=== PATIENT | male | born 1955 | race Caucasian/White ===

== ENCOUNTER 2021-10-02 13:00 | Emergency (ER) | payer MEDICARE ==
[2021-10-02 13:45] VITALS: TEMP 97.7
--- NOTE | 2021-10-02 14:47 | ED ---
General Adult HPI - General Chief complaint: ENT Stated complaint: ENT, trouble breathing Time Seen by Provider: 10/02/21 14:26 Source: patient Mode of arrival: ambulatory Limitations: no limitations - History of Present Illness Initial comments: Dictation was produced using [email or web address] dictation software. please excuse any grammatical, word or spelling errors. Chief Complaint: 65-year-old male presents emergency department for CT imaging History of Present Illness: 65-year-old who has past medical history of laryngeal polyps, sinusitis and sleep apnea. Patient reports that her last month he has been developing symptoms of intractable belching, swallowing air. He was seen by his primary care doctor and was prescribed ALLERGY medications. States his medications did not help. He ended be referred to ENT physician, Dr. Boyd. Dr. Boyd ordered patient to computed tomography scan and antibiotics. He was not scheduled for the computed tomography scan until October 10. States that he was instructed not to take steroidal medications until after the computed tomography scan. He states he did not want to wait in the second to the ER to expedite a CT imaging so he can start taking steroids. Patient besides having some mild dysphasia and intractable belching does not have any other symptoms. The ROS documented in this emergency department record has been reviewed and confirmed by me. Those systems with pertinent positive or negative responses have been documented in the HPI. All other systems are other negative and/or noncontributory. PHYSICAL EXAM: General Impression: Alert and oriented x3, not in acute distress HEENT: Normocephalic atraumatic, extra-ocular movements intact, pupils equal and reactive to light bilaterally, mucous membranes moist. Cardiovascular: Heart regular rate and rhythm Chest: Able to complete full sentences, no retractions, no tachypnea Abdomen: abdomen soft, non-tender, non-distended, no organomegaly Musculoskeletal: Pulses present and equal in all extremities, no peripheral edema Motor: no focal deficits noted Neurological: CN II-XII grossly intact, no focal motor or sensory deficits noted Skin: Intact with no visualized rashes Psych: Normal affect and mood ED course: 65-year-old well-appearing male presents to the emergency department. Patient requesting CT imaging. He is scheduled for CT imaging on October 20. He does not want to wait until then so he can start taking prednisone that he is prescribed by ENT physician. Vital signs upon arrival are within acceptable limits. Patient not showing any signs of distress. Metabolic panel is unremarkable. CT of the soft tissue neck with contrast shows mild cervical lymphadenopathy. No evidence of pharyngeal mass. There is also mild ethmoid and frontal sinusitis noted. Patient observed in the emergency department for 3 hours and 20 minutes. He is reevaluated at bedside at 4:30 PM found to be stable medical condition. Is not showing signs of distress. Patient's belching has improved. Patient discharged and advised to follow-up with ENT physician. - Related Data Allergies Allergy/AdvReac Type Severity Reaction Status Date / Time No Known Allergies Allergy Verified 10/02/21 13:45 Review of Systems ROS Statement: Those systems with pertinent positive or pertinent negative responses have been documented in the HPI. ROS Other: All systems not noted in ROS Statement are negative. Past Medical History Past Medical History: GERD/Reflux Additional Past Medical History / Comment(s): laryngeal polyps, sinusitis, sleep apnea History of Any Multi-Drug Resistant Organisms: None Reported Past Psychological History: No Psychological Hx Reported Smoking Status: Former smoker Past Alcohol Use History: None Reported Past Drug Use History: None Reported General Exam Limitations: no limitations Course Vital Signs 10/02/21 13:39 Temperature 97.7 F Pulse Rate 105 H Respiratory 20 Rate Blood Pressure 151/85 O2 Sat by Pulse 96 Oximetry Medical Decision Making - Lab Data Result diagrams: 10/02/21 14:52 Lab Results 10/02/21 Range/Units 14:52 Sodium 139 (137-145) mmol/L Potassium 4.1 (3.5-5.1) mmol/L Chloride 106 (98-107) mmol/L Carbon Dioxide 24 (22-30) mmol/L Anion Gap 9 mmol/L BUN 16 (9-20) mg/dL Creatinine 1.09 (0.66-1.25) mg/dL Est GFR (CKD-EPI)AfAm 81 (>60 ml/min/1.73 sqM) Est GFR (CKD-EPI)NonAf 70 (>60 ml/min/1.73 sqM) Glucose 105 H (74-99) mg/dL Calcium 9.3 (8.4-10.2) mg/dL Disposition Clinical Impression: Dysphagia Disposition: HOME SELF-CARE Condition: Good Instructions (If sedation given, give patient instructions): Dysphagia (ED) Is patient prescribed a controlled substance at d/c from ED?: No Referrals: Trent Sykes [Primary Care Provider] - 1-2 days Braulio Del Castillo DO [Doctor of Osteopathic Medicine] - 1-2 days
[2021-10-02 15:27] LABS: Calcium 9.3 mg/dL (8.4-10.2)
[2021-10-02 15:28] LABS: Potassium 4.1 mmol/L (3.5-5.1)
--- NOTE | 2021-10-02 16:18 | CT ---
EXAMINATION TYPE: CT soft tissue neck w con DATE OF EXAM: 10/02/2021 COMPARISON: None HISTORY: dyspena, neck mass CT DLP: 305.1 mGycm Automated exposure control for dose reduction was used. CONTRAST: Performed with IV Contrast, patient injected with 100 mL of Isovue 300. Images obtained from the top of the orbits to the aortic arch with IV contrast. There is normal branching pattern of the great vessels of the aortic arch. No mediastinal adenopathy. Thyroid gland is symmetric. There is contrast opacification of the carotid arteries and jugular vein s. There is contrast opacification of the vertebral arteries. Submandibular salivary glands are symme tric. Parotid glands are symmetric. There are bilateral anterior triangle cervical lymph nodes measur ing up to 1.7 cm. Epiglottis is normal. Trachea appears normal. The tongue appears normal. The tonsils and adenoids jaden ear intact. There is some mucosal thickening in the frontal and ethmoid sinuses. No evidence of orbit al mass. Mandible is intact. Maxilla is intact. Prevertebral soft tissues appear normal. No evidence of pharyn geal mass. IMPRESSION: There is nonspecific mild cervical lymphadenopathy. No evidence of a pharyngeal mass. Mild ethmoid an d frontal sinusitis noted.
[2021-10-02 16:38] VITALS: BP 155/78; PULSE 99; RESP 16
== END 2021-10-02 16:37 | disposition home or self-care (01) ==
LOC: EC 13:00
DX: R47.02 Dysphasia (principal); Z87.891 Personal history of nicotine dependence
CPT/HCPCS: 36415; 80048; 70491; 99284; Q9967

== ENCOUNTER 2021-10-13 13:31 | Inpatient (IN) | payer MEDICARE, OTHER ==
[2021-10-13] MEDS ORDERED: SODIUM CHLORIDE 0.9% 1,000 ML IV ONE (15:19)
[2021-10-13] MEDS ORDERED: FAMOTIDINE 20 MG/2 ML VIAL IV STA (15:20)
[2021-10-13] MEDS ORDERED: FLUCONAZOLE IN NACL,ISO-OSM 400 MG in SALINE 1 200ML.BAG IVPB STA (16:10)
--- NOTE | 2021-10-13 16:53 | ED ---
ENT HPI - General Chief complaint: ENT Stated complaint: Dysphagia Time Seen by Provider: 10/13/21 15:03 Source: patient, RN notes reviewed, old records reviewed Mode of arrival: ambulatory Limitations: no limitations - History of Present Illness Initial comments: This is a 65-year-old male who presents to the emergency department for dysphasia. Over a month ago, he began to develop intractable belching and dysphasia. He is up to the point where he can't talk without getting short of breath and he is unable to swallow without taking in large volumes of air and belching. Upon initial examination, patient is having continuous belching causing difficulty with speaking. He had similar symptoms 10-11 years ago when he was diagnosed with oral thrush and fungal sinusitis. He was initially evaluated at this emergency department on 10/02. He had a computed tomography scan of the soft tissue of the neck revealing mild nonspecific cervical lymphade nopathy and mild frontal and ethmoid sinusitis. He was discharged and followed up with Dr. Del Castillo on 10/05. He was instructed to go to [facility] emergency room for a computed tomography scan of the chest and sinuses. This again revealed no abnormalities. He was then transferred to [facility] where he was admitted from 10/08-10/09 and had an endoscopy. He was diagnosed with LA grade B reflux esophagitis. He did not find endoscopic evidence of bleeding, hiatal hernia, stenosis, or stricture. The stomach and partially visualized duodenum also did not reveal any irregularities. No specimens were collected during the EGD. When he was discharged on 10/09, he was again told to follow up with ENT. He notes that he has lost about 20 pounds in the last month. Also reports a lost of taste and smell. Additionally, before the dysphasia began, he had drainage and swelling in the sinuses, and feels like it worked its way down to the throat. He does feel pressure and a swelling sensation in the throat. He has not been started on any steroids, however there is concerned that if this were to be a fungal infection, the steroids would further exacerbate this. He was discharged with instruction to take Augmentin, GI cocktail, and fluconazole. However, he was only able to take 2 fluconazole pills because of the dysphagia Any time he eats or drinks anything, he feels like it gets stuck or stops in his throat and he spits it back up. Belching is also preventing him from sw allowing. Despite all of these symptoms, he is not experiencing any pain. He was told that if he continues to be unable to eat or drink anything, he may need a feeding tube placed. Denies any fevers, chills, sore throat, cough, dyspnea, chest pain, palpitations, abdominal pain, nausea, vomiting, diarrhea, back pain, or headaches. MD complaint: difficulty swallowing Onset/Timin -: month(s) Consistency: constant - Related Data Home Medications Medication Instructions Recorded Confirmed Fluconazole [Diflucan] 200 mg PO DAILY 10/13/21 10/13/21 Kools Solution 10 ml PO Q4H PRN 10/13/21 Montelukast Sodium [Singulair] 10 mg PO DAILY 10/13/21 10/13/21 Omeprazole [PriLOSEC] 40 mg PO DAILY 10/13/21 10/13/21 predniSONE [Deltasone] 20 mg PO Q48H 10/13/21 10/13/21 Allergies Allergy/AdvReac Type Severity Reaction Status Date / Time No Known Allergies Allergy Verified 10/13/21 17:02 Review of Systems ROS Statement: Those systems with pertinent positive or pertinent negative responses have been documented in the HPI. ROS Other: All systems not noted in ROS Statement are negative. Past Medical History Past Medical History: GERD/Reflux Additional Past Medical History / Comment(s): laryngeal polyps, sinusitis, sleep apnea History of Any Multi-Drug Resistant Organisms: None Reported Past Psychological History: No Psychological Hx Reported Smoking Status: Former smoker Past Alcohol Use History: None Reported Past Drug Use History: None Reported General Exam Limitations: no limitations General appearance: alert Head exam: Present: atraumatic, normocephalic, normal inspection ENT exam: Present: other (White roach on the tongue which may be consistent with oral candidiasis) Neck exam: Present: normal inspection, full ROM. Absent: tenderness, meningismus, lymphadenopathy Respiratory exam: Present: normal lung sounds bilaterally. Absent: respiratory distress, wheezes, rales, rhonchi, stridor Cardiovascular Exam: Present: regular rate, normal rhythm, normal heart sounds. Absent: systolic murmur, diastolic murmur, rubs, gallop, clicks Neurological exam: Present: alert, oriented X3, CN II-XII intact Psychiatric exam: Present: normal affect, normal mood Skin exam: Present: warm, dry, intact, normal color. Absent: rash Course Vital Signs 10/13/21 10/13/21 10/13/21 13:39 18:22 19:36 Temperature 97.4 F L Pulse Rate 110 H 82 93 Respiratory 20 18 16 Rate Blood Pressure 149/92 155/101 148/91 O2 Sat by Pulse 97 99 98 Oximetry 10/13/21 21:32 Temperature 98.0 F Pulse Rate 68 Respiratory 18 Rate Blood Pressure 140/82 O2 Sat by Pulse 98 Oximetry Medical Decision Making - Medical Decision Making This is a 65-year-old male who presents to the emergency department for intractable dysphagia and belching. Records from his previous visit at [facility], [facility], and [facility] were reviewed. Computed tomography scan of the neck and chest were unremarkable. Computed tomography scan of the sinuses reveals chronic sinusitis. EGD at [place] revealed esophagitis, however no biopsies were obtained. He has never had a barium swallow study or esophageal manometry. Patient is unable to talk without continuous belching. Given that the patient has been unable to eat or drink and is losing a significant amount of weight, patient will be admitted for further evaluation with gastroenterology consult. Swallow study ordered for the morning. When patient was discharged from [facility], he was advised to begin Augmentin and Flagyl. Because he has not been able to take these orally due to his symptoms, IV Flagyl and Unasyn were started. This case was discussed in detail with the attending ED physician. Presentation, findings, and treatment plan discussed in detail as well. - Lab Data Result diagrams: 10/13/21 16:36 10/13/21 16:36 Lab Results 10/13/21 10/13/21 10/13/21 Range/Units 16:36 16:36 16:36 WBC 10.5 (3.8-10.6) k/uL RBC 5.66 (4.30-5.90) m/uL Hgb 17.1 (13.0-17.5) gm/dL Hct 50.6 (39.0-53.0) % MCV 89.6 (80.0-100.0) fL MCH 30.2 (25.0-35.0) pg MCHC 33.7 (31.0-37.0) g/dL RDW 12.7 (11.5-15.5) % Plt Count 188 (150-450) k/uL MPV 8.8 Neutrophils % 63 % Lymphocytes % 28 % Monocytes % 6 % Eosinophils % 0 % Basophils % 1 % Neutrophils # 6.6 (1.3-7.7) k/uL Lymphocytes # 2.9 (1.0-4.8) k/uL Monocytes # 0.6 (0-1.0) k/uL Eosinophils # 0.0 (0-0.7) k/uL Basophils # 0.1 (0-0.2) k/uL ESR 8 (0-15) mm/hr Sodium 140 (137-145) mmol/L Potassium 3.9 (3.5-5.1) mmol/L Chloride 101 (98-107) mmol/L Carbon Dioxide 22 (22-30) mmol/L Anion Gap 17 mmol/L BUN 21 H (9-20) mg/dL Creatinine 1.20 (0.66-1.25) mg/dL Est GFR (CKD-EPI)AfAm 73 (>60 ml/min/1.73 sqM) Est GFR (CKD-EPI)NonAf 63 (>60 ml/min/1.73 sqM) Glucose 97 (74-99) mg/dL Calcium 10.1 (8.4-10.2) mg/dL Total Bilirubin 1.1 (0.2-1.3) mg/dL AST 42 (17-59) U/L ALT 59 H (4-49) U/L Alkaline Phosphatase 100 (38-126) U/L C-Reactive Protein <0.5 (<1.0) mg/dL Total Protein 9.1 H (6.3-8.2) g/dL Albumin 5.3 H (3.5-5.0) g/dL Urine Color Yellow Urine Appearance Clear (Clear) Urine pH 5.5 (5.0-8.0) Ur Specific [place] 1.037 H (1.001-1.035) Urine Protein 1+ H (Negative) Urine Glucose (UA) Negative (Negative) Urine Ketones 4+ H (Negative) Urine Blood Negative (Negative) Urine Nitrite Negative (Negative) Urine Bilirubin 1+ H (Negative) Urine Urobilinogen 2.0 (<2.0) mg/dL Ur Leukocyte Esterase Negative (Negative) Urine RBC 1 (0-5) /hpf Urine WBC 1 (0-5) /hpf Ur Squamous Epith Cells <1 (0-4) /hpf Urine Mucus Many H (None) /hpf Disposition Clinical Impression: Refractory sinusitis, Dysphagia, Malnutrition, Weight loss, unintentional Disposition: ADMITTED IP TO THIS HOSP
[2021-10-13 17:04] LABS: ALT 59 U/L (4-49); AST 42 U/L (17-59); African American GFR (CKD) 73 (>60 ml/min/1.73 sqM); Albumin 5.3 g/dL (3.5-5.0); Alkaline Phosphatase 100 U/L (38-126); Anion Gap 17 mmol/L; Blood Urea Nitrogen 21 mg/dL (9-20); C Reactive Protein <0.5 mg/dL (<1.0); Calcium 10.1 mg/dL (8.4-10.2); Carbon Dioxide 22 mmol/L (22-30); Chloride 101 mmol/L (98-107); Glucose 97 mg/dL (74-99); Non-African American GFR(CKD) 63 (>60 ml/min/1.73 sqM); Potassium 3.9 mmol/L (3.5-5.1); Sodium 140 mmol/L (137-145); Total Bilirubin 1.1 mg/dL (0.2-1.3); Total Protein 9.1 g/dL (6.3-8.2)
[2021-10-13 17:17] LABS: Basophils # (A) 0.1 k/uL (0-0.2); Basophils % (A) 1 %; Eosinophils % (A) 0 %; HCT 50.6 % (39.0-53.0); HGB 17.1 gm/dL (13.0-17.5); Lymphocytes # (A) 2.9 k/uL (1.0-4.8); Lymphocytes % (A) 28 %; MCH 30.2 pg (25.0-35.0); MCHC 33.7 g/dL (31.0-37.0); MCV 89.6 fL (80.0-100.0); Mean Platelet Volume 8.8; Monocytes # (A) 0.6 k/uL (0-1.0); Monocytes % (A) 6 %; Neutrophils # (A) 6.6 k/uL (1.3-7.7); Neutrophils % (A) 63 %; Platelet Count 188 k/uL (150-450); RBC 5.66 m/uL (4.30-5.90); RDW 12.7 % (11.5-15.5); WBC 10.5 k/uL (3.8-10.6)
[2021-10-13 17:53] LABS: Appearance,Urine Clear (Clear); Bilirubin,Urine 1+ (Negative); Blood,Urine Negative (Negative); Color,Urine Yellow; Glucose,Urine (UA) Negative (Negative); Ketones,Urine 4+ (Negative); Leukocyte Esterase,Urine Negative (Negative); Mucus,Urine Many /hpf; Nitrite,Urine Negative (Negative); PH, Urine 5.5 (5.0-8.0); Protein,Urine 1+ (Negative); RBC,Urine 1 /hpf (0-5); Specific Gravity,Urine 1.037 (1.001-1.035); Squamous Epithelial Cell,Urine <1 /hpf (0-4); WBC,Urine 1 /hpf (0-5)
[2021-10-13] MEDS ORDERED: AMPICILLIN-SULBACTAM 3 GM in SODIUM CHLORIDE 0.9% 100 ML IVPB ONE (18:30)
[2021-10-13 18:34] LABS: Erythrocyte Sedimentation Rate 8 mm/hr (0-15)
[2021-10-13] MEDS ORDERED: HYDROmorphone 1 MG/ML 1 ML SYRINGE IVP PRN (19:16)
[2021-10-13] MEDS ORDERED: HYDROmorphone 0.5 MG/0.5 ML SYRINGE IVP PRN (19:16)
[2021-10-13] MEDS ORDERED: NALOXONE 0.4 MG/ML 1 ML VIAL IV PRN (19:16)
[2021-10-13] MEDS: SODIUM CHLORIDE 0.9% 1,000 ML IV SCH (19:37)
[2021-10-13] MEDS ORDERED: KETOROLAC 15 MG/ML 1 ML VIAL IVP PRN (19:50)
[2021-10-13] MEDS ORDERED: KETOROLAC 15 MG/ML 1 ML VIAL IVP SCH (20:00)
[2021-10-13] MEDS: PANTOPRAZOLE 40 MG/10 ML VIAL IV SCH (22:08)
--- NOTE | 2021-10-13 22:37 | P.HPIM ---
History of Present Illness H&P Date: 10/13/21 The patient is a 65-year-old male who presented to the emergency room with complaints of dysphagia and excessive eructation. Patient reports that roughly 10 years ago, he was diagnosed with fungal sinusitis and oral thrush and also had similar symptoms which resolved with antifungals. His current symptoms however started roughly a month ago when he initially developed discomfort and drainage of the sinuses which as per the patient worked its way down to the throat where he then developed gradually worsening belching, now to the point where he is unable to eat and speak in full sentences. He notes that there is an involuntary ingestion of air with most breaths, causing him to constantly be lch. He reports having lost 20 pounds of weight in the last one month due to minimal oral intake.Patient was initially seen in the emergency room on 10/[address] neck with contrast revealed mild ethmoid and frontal sinusitis as well as mild cervical lymphadenopathy nonspecific. He was subsequently discharged and followed up with his ENT doctor Dr. Boyd on 10/05 who advised him to go to the emergency room, at which time he went to [facility] as per the patient a CT chest was performed and was unremarkable. From there, he was transferred to [facility] where he had an inpatient stay and underwent an upper endoscopy revealing grade B reflux esophagitis with no other abnormalities. As per the documentation, no specimens were collected, the patient was discharged on 10/09 with Augmentin and fluconazole and advised to follow-up with his ENT. The patient reports not having undergone a swallowing evaluation such as a barium study. Patient reports that he has not taken those medications as he is unable to tolerate any liquids or solids. The patient has discussed with Dr. Boyd about the possibility of a feeding tube if the symptoms persist due to the excessive weight loss. The patient denied odynophagia, nausea, vomiting, diarrhea, abdominal pain. Also denied headaches, visual disturbances, fever, chills, chest pain, shortness of breath. Laboratory evaluation in the emergency room was unremarkable. Review of systems: Pertinent positives and negatives as discussed in HPI, a complete review of systems was performed and all other systems are negative. Physical examination: General: non toxic, no distress, appears at stated age, constantly belching, normal weight Derm: no unusual rashes/lesions, warm Head: atraumatic, normocephalic, symmetric Eyes: EOMI, no lid lag, anicteric sclera, pupils equal round reactive to light ENT: Nose and ears atraumatic Neck: No cervical lymphadenopathy, trachea midline, supple Mouth: no lip lesion, mucus membranes moist Cardiovascular: S1S2 reg, no murmur, positive dorsalis pedis pulse bilateral, no edema Lungs: CTA bilateral, no rhonchi, no rales, no accessory muscle use Abdominal: soft, nontender to palpation, no guarding Ext: muscle strength 5 out of 5 in all 4 extremities grossly, no gross muscle atrophy, no contractures, Neuro: CN II-XI grossly intact, no gross focal neuro deficits Psych: Alert, oriented, appropriate affect Assessment/plan Dysphagia with excessive eructation -Consult Dr. Boyd -Continue fluconazole -Consult [facility] for swallowing evaluation including videofluoroscopic barium -Continue Protonix DVT prophylaxis -Heparin subcu The patient is admitted with an anticipated greater than 2 midnight stay for evaluation of dysphagia CODE STATUS: Full Code Discussed with: Patient Anticipated discharge date: 10/[address]: Home Past Medical History Past Medical History: GERD/Reflux Additional Past Medical History / Comment(s): laryngeal polyps, sinusitis, sleep apnea History of Any Multi-Drug Resistant Organisms: None Reported Past Psychological History: No Psychological Hx Reported Smoking Status: Former smoker Past Alcohol Use History: None Reported Past Drug Use History: None Reported - Past Family History Mother Family Medical History: Hypertension Medications and Allergies Home Medications Medication Instructions Recorded Confirmed Type Fluconazole [Diflucan] 200 mg PO DAILY 10/13/21 10/13/21 History Kools Solution 10 ml PO Q4H PRN 10/13/21 History Montelukast Sodium [Singulair] 10 mg PO DAILY 10/13/21 10/13/21 History Omeprazole [PriLOSEC] 40 mg PO DAILY 10/13/21 10/13/21 History predniSONE [Deltasone] 20 mg PO Q48H 10/13/21 10/13/21 History Allergies Allergy/AdvReac Type Severity Reaction Status Date / Time No Known Allergies Allergy Verified 10/13/21 17:02 Physical Exam Vitals: Vital Signs Temp Pulse Resp BP Pulse Ox 10/13/21 19:36 93 16 148/91 98 10/13/21 18:22 82 18 155/101 99 10/13/21 13:39 97.4 F L 110 H 20 149/92 97 Intake and Output 10/13/21 10/13/21 10/13/21 06:59 14:59 22:59 Other: Weight 88.451 kg Results CBC & Chem 7: 10/13/21 16:36 10/13/21 16:36 Labs: Abnormal Lab Results - Last 24 Hours (Table) 10/13/21 10/13/21 Range/Units 16:36 16:36 BUN 21 H (9-20) mg/dL ALT 59 H (4-49) U/L Total Protein 9.1 H (6.3-8.2) g/dL Albumin 5.3 H (3.5-5.0) g/dL Ur Specific [place] 1.037 H (1.001-1.035) Urine Protein 1+ H (Negative) Urine Ketones 4+ H (Negative) Urine Bilirubin 1+ H (Negative) Urine Mucus Many H (None) /hpf
[2021-10-14] MEDS ORDERED: AMPICILLIN-SULBACTAM 3 GM in SODIUM CHLORIDE 0.9% 100 ML IVPB SCH ×2
[2021-10-14] MEDS: HEPARIN SODIUM,PORCINE/PF 5,000 UNIT/0.5 ML SYRINGE SQ SCH ×4 (00:10→23:21)
[2021-10-14] MEDS: FLUCONAZOLE IN NACL,ISO-OSM 200 MG in SALINE 1 100ML.BAG IVPB SCH (07:43)
[2021-10-14] MEDS: PANTOPRAZOLE 40 MG/10 ML VIAL IV SCH (07:43)
[2021-10-14] MEDS: SODIUM CHLORIDE 0.9% 1,000 ML IV SCH ×2 (07:44→23:21)
--- NOTE | 2021-10-14 09:20 | FL ---
EXAMINATION TYPE: FL barium swallow DATE OF EXAM: 10/14/2021 CLINICAL INDICATION: 65-year-old male intractable dysphasia, belching, shortness of breath, weight lo ss. COMPARISON: Correlation outside CT chest 10/05/2021 Total Fluoroscopy Time: 2 minutes 34 seconds 56 images obtained. FINDINGS: The patient had poor tolerance of the effervescent granules. Swallowing mechanism is normal. There is preferential rightward flow on the right aryepiglottic fold, likely normal variation. Mild palatine tonsillar hypertrophy noted. There is anterior endplate spondylosis at C4-C5 causing focal compression onto the posterior wall of the cervical esophagus without obstruction. The thoracic portion has a normal course and caliber. A mild age-related tertiary peristaltic waves a re noted. The mucosa is normal and no persistent filling defect is encountered. There is a tiny sliding hiatal hernia. Gastroesophageal reflux could not be elicited with Valsalva or positional maneuvers. IMPRESSION: 1. Braulio oral thrush incidentally noted at the start of the exam. No fluoroscopic evidence for Candid a esophagitis of the thoracic esophagus. No additional mucosal abnormalities to suggest other esophag itis. 2. Anterior endplate spondylosis C4-C5 focally impressing on the posterior wall of the cervical esoph chana without obstruction. 3. [place] tonsillar hypertrophy incidentally noted. 4. Small sliding hiatal hernia. Unable to elicit any gastroesophageal reflux during the course of the exam.
--- NOTE | 2021-10-14 13:30 | P.CONS ---
History of Present Illness - Reason for Consult Consult date: 10/14/21 Intractable dysphagia Requesting physician: Arely Barrera - Chief Complaint Difficulty swallowing, facial swelling - History of Present Illness This a pleasant 65-year-old male who presented to the emergency department yesterday with complaints offacial swelling, sinus pressure, and difficulty with swallowing due to the swelling. He also has complaints of oral thrush. He also states he feels as though he is getting short of breath and difficult to catch his breath or swallow due to chronic belching. He had similar symptoms 10-11 years ago when he was diagnosed with oral thrush and treated. Initially he was evaluated in the emergency department on 01/02/2022 and sent home. Symptoms persisted and he had appointment with Dr. Boyd with ENT, he was sent then to the emergency department at [facility]. He was transferred to [facility] for endoscopic evaluation as there was no GI present. He had an EGD 63 with findings of a late grade B esophagitis, no esophageal strictures and no stenosis, as well as no hiatal hernia. He states he was started on Diflucan and sent home. However symptoms had continued symptoms he came to the emergency department for further evaluation. Estrin trilogy was consulted for intractable dysphagia. The patient states he has not having difficulty swallowing no pain with swallowing it is that he feels is that he cannot swallow because of the belching in the swelling in his face and throat from his thrush. Has no esophageal discomfort. He does state that he has had approximately 20 pound weight loss in the last one month. He underwent a barium swallow that showed prasanna oral thrush incidentally noted at the start of exam. No fluoroscopic evidence for Sully esophagitis of the thoracic esophagus. No additional mucosal abnormalities to suggest other esophagitis. Anterior endplate spondylosis C4/C5 focally impressing on the posterior wall of the cervical esophagus without obstruction. [place] tonsillar hypertrophy incidentally noted. Small sliding hiatal hernia. Unable to elicit any gastroesophageal reflux during the course of the exam. Swallowing mechanism was normal. Review of Systems REVIEW OF SYSTEMS: CARDIOPULMONARY: No chest pain or shortness of breath. Gastrointestinal: No abdominal pain. No pain with swallowing, no difficulty with swallowing food. He states that he feels that this his throat is swollen and his fascia swollen so he is unable to swallow well. Persistent belching. No nausea or vomiting. No hematemesis, coffee-ground emesis. No rectal bleeding, or melena. GENITOURINARY: No dysuria or hematuria. MUSCULOSKELETAL: Reports normal range of motion., Joint pain. SKIN: No rashes. No jaundice. ENDOCRINE: No chills, fevers. . No polydipsia or polyuria. PSYCHIATRIC: Unremarkable. NEUROLOGY: No change in mental status. Denies dizziness, headache. ENT: Vision unremarkable. CONSTITUTIONAL: Reports approximately 20 pound weight loss in the last 1 month. No fever, chills, night sweats. Past Medical History Past Medical History: GERD/Reflux Additional Past Medical History / Comment(s): laryngeal polyps, sinusitis, sleep apnea History of Any Multi-Drug Resistant Organisms: None Reported Past Surgical History: No Surgical Hx Reported Past Anesthesia/Blood Transfusion Reactions: No Reported Reaction Past Psychological History: No Psychological Hx Reported Smoking Status: Former smoker Past Alcohol Use History: None Reported Past Drug Use History: None Reported - Past Family History Mother Family Medical History: Hypertension Medications and Allergies Home Medications Medication Instructions Recorded Confirmed Type Fluconazole [Diflucan] 200 mg PO DAILY 10/13/21 10/13/21 History Kools Solution 10 ml PO Q4H PRN 10/13/21 History Montelukast Sodium [Singulair] 10 mg PO DAILY 10/13/21 10/13/21 History Omeprazole [PriLOSEC] 40 mg PO DAILY 10/13/21 10/13/21 History predniSONE [Deltasone] 20 mg PO Q48H 10/13/21 10/13/21 History Allergies Allergy/AdvReac Type Severity Reaction Status Date / Time No Known Allergies Allergy Verified 10/13/21 17:02 Physical Exam Vitals: Vital Signs Temp Pulse Pulse Resp BP BP Pulse Ox 10/14/21 03:54 98.1 F 70 18 145/92 98 10/13/21 22:00 18 10/13/21 21:32 98.0 F 68 18 140/82 98 10/13/21 19:36 93 16 148/91 98 10/13/21 18:22 82 18 155/101 99 10/13/21 13:39 97.4 F L 110 H 20 149/92 97 Intake and Output 10/13/21 10/14/21 10/14/21 22:59 06:59 14:59 Intake Total 800 Balance 800 Intake: Intake, IV Titration 800 Amount Ampicillin-Sulbactam 3 gm 100 In Sodium Chloride 0.9% 100 ml @ 200 mls/hr IVPB ONCE ONE Rx#:[id number] Sodium Chloride 0.9% 1, 700 000 ml @ 75 mls/hr IV . [id number] [facility] Rx#:[id number] Other: Voiding Method Toilet # Voids 2 Weight 88.451 kg General appearance: The patient is alert, oriented, appears in no acute distress. HET: Head is normocephalic and atraumatic. Conjunctiva pink. Sclera anicteric. Neck: Supple without lymphadenopathy. Trachea midline. Heart: S1 S2. Regular rate and rhythm. Lungs: Clear to auscultation. Abdomen: Soft, nontender, nondistended with bowel sounds. No guarding or rigi dity. Skin: No rashes. No jaundice. Extremities: Normal skin color and turgor. No pedal edema. Neurological: No focal deficits. Alert and oriented x3. Results CBC & Chem 7: 10/13/21 16:36 10/13/21 16:36 Labs: Abnormal Lab Results - Last 24 Hours (Table) 10/13/21 10/13/21 Range/Units 16:36 16:36 BUN 21 H (9-20) mg/dL ALT 59 H (4-49) U/L Total Protein 9.1 H (6.3-8.2) g/dL Albumin 5.3 H (3.5-5.0) g/dL Ur Specific [place] 1.037 H (1.001-1.035) Urine Protein 1+ H (Negative) Urine Ketones 4+ H (Negative) Urine Bilirubin 1+ H (Negative) Urine Mucus Many H (None) /hpf Comments: Barium swallow that showed prasanna oral thrush incidentally noted at the start of exam. No fluoroscopic evidence for Sully esophagitis of the thoracic esophagus. No additional mucosal abnormalities to suggest other esophagitis. Anterior endplate spondylosis C4/C5 focally impressing on the posterior wall of the cervical esophagus without obstruction. [place] tonsillar hypertrophy incidentally noted. Small sliding hiatal hernia. Unable to elicit any gastroesophageal reflux during the course of the exam. Swallowing mechanism was normal. Assessment and Plan (1) Dysphagia Narrative/Plan: 65-year-old male who came into the emergency department with concerns for facial swelling and throat swelling, difficulty swallowing and breathing. Also complains of frequent belching. Concern for weight loss of approximately 20 pounds over last 1 month duration. He has been seen and hospitalized at [facility] and [facility]. He was admitted to [facility] . There he underwent an upper endoscopy showing only grade B esophagitis, no esophageal stricture, no stenosis and no evidence of hiatal hernia. Also reported no esophageal sully. Since that time he has been continuing to have difficulty with swallowing he says due to swelling in his throat and face, he states he has sinus pressure and feels that he is swollen from his throat to his head. Unknown etiology of symptoms, ENT is on consultation. Recent EGD shows do esophageal stricture. Barium swallow shows normal swallowing mechanism without esophageal dysmotility. The is anterior endplate spondylosis at c4-c5 causing focal compression onto the posterior wall of the cervical esophagus without obstruction. Consider neck and spine surgeon referral. Current Visit: Yes Status: Acute Code(s): R13.10 - DYSPHAGIA, UNSPECIFIED SNOMED Code(s): 94287361 (2) Oral candidiasis Narrative/Plan: Continue continue IV fluconazole Current Visit: Yes Status: Acute Code(s): B37.0 - CANDIDAL STOMATITIS SNOMED Code(s): 45818070 (3) Weight loss, unintentional Current Visit: Yes Status: Acute Code(s): R63.4 - ABNORMAL WEIGHT LOSS SNOMED Code(s): 812679671 Plan: 1. Continue symptomatic and supportive care 2. Appreciate recommendations from ENT 3. Recent EGD performed during hospitalization at [facility] showed no esophageal stricture, stenosis, hiatal hernia or esophageal sully. Shows [place] grade B esophagitis 4. Continue fluconazole 5. No plans on endoscopic evaluation 6. Diet as tolerated 7. Consider possible referral/consultation to spine and neck surgeon for anterior spondylosis C4-C5 Thank you for allowing us to participate in the care of the patient, the GI service will sign off, gastroenterology will not be available at the hospital this weekend. If further evaluation by gastroenterology is required the patient will need transfer as per the primary team's discretion. Dr. Hugh Riddle I agree with the dictator's note, documented as a scribe by Joselin Nolasco
--- NOTE | 2021-10-14 14:38 | P.GSCN ---
History of Present Illness Consult date: 10/14/21 Reason for Consult: dysphagia Requesting physician: Mirna Ames History of present illness: This is a 65-year-old white male who has had 1-2 months of persistent belching and dysphagia. He's lost 20 pounds over the last month. He is having hard time swallowing and has multiple nonspecific symptoms of postnasal drainage etc. He suffers from an anxiety disorder. Frequently during the day he belches up area from his esophagus and has difficulty swallowing foods. He denies any hemoptysis. Denies any issues in the head and neck other than from some scant sinus drainage. He is unable to produce any drainage either anteriorly or posteriorly. CAT scan of the neck previously was unremarkable other than some mild sinus disease. He had an upper GI scope at [facility] which showed some mild esophagitis. A barium swallow did not reveal any specific abnormalities. Review of Systems - Constitutional Reports as per HPI - EENT Ears, nose, mouth and throat: Reports as per HPI - Cardiovascular Reports as per HPI - Respiratory Reports as per HPI - Gastrointestinal Reports as per HPI - Genitourinary Reports as per HPI - Musculoskeletal Reports as per HPI - Integumentary Reports as per HPI - Neurological Reports as per HPI - Psychiatric Reports as per HPI - Endocrine Reports as per HPI - Hematologic/Lymphatic Reports as per HPI - Allergic/Immunologic Reports as per HPI Past Medical History Past Medical History: GERD/Reflux Additional Past Medical History / Comment(s): laryngeal polyps, sinusitis, sleep apnea History of Any Multi-Drug Resistant Organisms: None Reported Past Surgical History: No Surgical Hx Reported Past Anesthesia/Blood Transfusion Reactions: No Reported Reaction Past Psychological History: No Psychological Hx Reported Smoking Status: Former smoker Past Alcohol Use History: None Reported Past Drug Use History: None Reported - Past Family History Mother Family Medical History: Hypertension Medications and Allergies Home Medications Medication Instructions Recorded Confirmed Type Fluconazole [Diflucan] 200 mg PO DAILY 10/13/21 10/13/21 History Kools Solution 10 ml PO Q4H PRN 10/13/21 History Montelukast Sodium [Singulair] 10 mg PO DAILY 10/13/21 10/13/21 History Omeprazole [PriLOSEC] 40 mg PO DAILY 10/13/21 10/13/21 History predniSONE [Deltasone] 20 mg PO Q48H 10/13/21 10/13/21 History Allergies Allergy/AdvReac Type Severity Reaction Status Date / Time No Known Allergies Allergy Verified 10/13/21 17:02 Surgical - Exam Osteopathic Statement: *. No significant issues noted on an osteopathic structural exam other than those noted in the History and Physical/Consult. Vital Signs Temp Pulse Resp BP Pulse Ox 97.4 F L 110 H 20 149/92 97 10/13/21 13:39 10/13/21 13:39 10/13/21 13:39 10/13/21 13:39 10/13/21 13:39 - General well developed, well nourished, no distress - Eyes PERRL, normal ocular movement - ENT normal pinna, normal nares, normal mucosa, no hearing loss, no congestion - Neck no masses, no bruits, trachea midline, no lymphadectomy, no venous distension - Integumentary no rash, no growths - Neurologic normal coordination, normal sensation - Musculoskeletal normal gait, normal posture - Psychiatric oriented to time, oriented to person, oriented to place, speech is normal Results - Labs 10/13/21 16:36 10/13/21 16:36 Abnormal Lab Results - Last 24 Hours (Table) 10/13/21 10/13/21 Range/Units 16:36 16:36 BUN 21 H (9-20) mg/dL ALT 59 H (4-49) U/L Total Protein 9.1 H (6.3-8.2) g/dL Albumin 5.3 H (3.5-5.0) g/dL Ur Specific [place] 1.037 H (1.001-1.035) Urine Protein 1+ H (Negative) Urine Ketones 4+ H (Negative) Urine Bilirubin 1+ H (Negative) Urine Mucus Many H (None) /hpf Diabetes panel 10/13/21 Range/Units 16:36 Sodium 140 (137-145) mmol/L Potassium 3.9 (3.5-5.1) mmol/L Chloride 101 (98-107) mmol/L Carbon Dioxide 22 (22-30) mmol/L BUN 21 H (9-20) mg/dL Creatinine 1.20 (0.66-1.25) mg/dL Glucose 97 (74-99) mg/dL Calcium 10.1 (8.4-10.2) mg/dL AST 42 (17-59) U/L ALT 59 H (4-49) U/L Alkaline Phosphatase 100 (38-126) U/L Total Protein 9.1 H (6.3-8.2) g/dL Albumin 5.3 H (3.5-5.0) g/dL Calcium panel 10/13/21 Range/Units 16:36 Calcium 10.1 (8.4-10.2) mg/dL Albumin 5.3 H (3.5-5.0) g/dL Pituitary panel 10/13/21 Range/Units 16:36 Sodium 140 (137-145) mmol/L Potassium 3.9 (3.5-5.1) mmol/L Chloride 101 (98-107) mmol/L Carbon Dioxide 22 (22-30) mmol/L BUN 21 H (9-20) mg/dL Creatinine 1.20 (0.66-1.25) mg/dL Glucose 97 (74-99) mg/dL Calcium 10.1 (8.4-10.2) mg/dL Adrenal panel 10/13/21 Range/Units 16:36 Sodium 140 (137-145) mmol/L Potassium 3.9 (3.5-5.1) mmol/L Chloride 101 (98-107) mmol/L Carbon Dioxide 22 (22-30) mmol/L BUN 21 H (9-20) mg/dL Creatinine 1.20 (0.66-1.25) mg/dL Glucose 97 (74-99) mg/dL Calcium 10.1 (8.4-10.2) mg/dL Total Bilirubin 1.1 (0.2-1.3) mg/dL AST 42 (17-59) U/L ALT 59 H (4-49) U/L Alkaline Phosphatase 100 (38-126) U/L Total Protein 9.1 H (6.3-8.2) g/dL Albumin 5.3 H (3.5-5.0) g/dL Assessment and Plan Plan: This patient's dysphagia and belching maybe neurogenic in origin. I will be placing him on Compazine 5 mg 3 times a day and this dose can be adjusted accordingly. Nursing staff will watch for tardive dyskinesia is a possible side effect. I recommended that he return to my office for repeat follow-up exam. He has a psychiatric evaluation scheduled. Please call me if any changes should occur. Time with Patient: Greater than 30
[2021-10-14 14:50] VITALS: BMI 27.9
[2021-10-14] MEDS: PROCHLORPERAZINE 5 MG TAB PO SCH ×2 (16:07→23:21)
--- NOTE | 2021-10-14 16:25 | P.PN ---
Subjective Progress Note Date: 10/14/21 Hospital course: The patient is a 65-year-old male who presented to the emergency room with complaints of dysphagia and excessive eructation. Patient reports that roughly 10 years ago, he was diagnosed with fungal sinusitis and oral thrush and also had similar symptoms which resolved with antifungals. His current symptoms however started roughly a month ago when he initially developed discomfort and drainage of the sinuses which as per the patient worked its way down to the thr oat where he then developed gradually worsening belching, now to the point where he is unable to eat and speak in full sentences. He notes that there is an involuntary ingestion of air with most breaths, causing him to constantly belch. He reports having lost 20 pounds of weight in the last one month due to minimal oral intake. Patient was initially seen in the emergency room on 10/[address] neck with contrast revealed mild ethmoid and frontal sinusitis as well as mild cervical lymphadenopathy nonspecific. He was subsequently discharged and followed up with his ENT doctor Dr. Boyd on 10/05 who advised him to go to the emergency room, at which time he went to [facility] and per patient a CT chest was performed and was unremarkable. From there, he was transferred to [facility] and had an inpatient stay in which he underwent an upper endoscopy revealing grade B reflux esophagitis with no other abnormalities. As per the documentation, no specimens were collected, the patient was discharged on 10/09 with Augmentin and fluconazole and advised to follow-up with his ENT. The patient reports not having undergone a swallowing evaluation such as a barium study. Patient reports that he has not taken those medications as he is unable to tolerate any liquids or solids. The patient has discussed with Dr. Boyd about the possibility of a feeding tube if the symptoms persist due to the excessive weight loss. The patient denied odynophagia, nausea, vomiting, diarrhea, abdominal pain. Also denied headaches, visual disturbances, fever, chills, chest pain, shortness of breath. Laboratory evaluation in the emergency room was unremarkable. Patient was admitted under our services with consultation to GI and ENT. Patient underwent a barium swall ow which revealed prasanna oral flush with no evidence for Sandra esophagitis, [place] tonsillar hypertrophy and a small sliding hiatal hernia. By mouth challenge completed and patient tolerating oral intake with clear liquids. Gastroenterology evaluated patient recommending continued symptomatic and supportive care with no plans for endoscopic evaluation. Patient evaluated by ENT stating patient's dysphasia and belching possibly neurogenic in origin and started patient on Compazine 5 mg 3 times daily. Patient's diet has been increased to regular diet and we will initiate treatment with Compazine as recommended. Patient to be monitored overnight and likely discharge home tomorrow morning pending toleration of oral intake. Physical examination: Patient seen and fully evaluated at bedside upon return from barium swallow evaluation. Patient reports he is feeling a little bit better but continues to have excessive eructation. Patient denies having any headache, lightheadedness, dizziness, chest pain, palpitations, shortness of breath, nausea, gastric reflux, vomiting, or abdominal pain. Barium swallow showing no significant abnormality with the exception of prasanna oral thrush and PO challenge completed. Patient tolerating oral intake with clear liquids (ice water) and apple juice. Diet advanced to regular diet at this time. General: non toxic, no distress, appears at stated age Derm: warm, dry Head: atraumatic, normocephalic, symmetric Eyes: EOMI, no lid lag, anicteric sclera Mouth: no lip lesion, mucus membranes moist Cardiovascular: S1S2 reg, no murmur, positive posterior tibial pulse bilateral, Lungs: CTA bilateral, no rhonchi, no rales , no accessory muscle use Abdominal: soft, nontender to palpation, no guarding, no appreciable organomegaly Ext: no gross muscle atrophy, no edema, no contractures Neuro: CN II-XI grossly intact, no focal neuro deficits Psych: Alert, oriented, appropriate affect Assessment/plan Dysphagia with excessive eructation -Consult Dr. Boyd, recommending starting patient on Compazine 5 mg by mouth 3 times daily. -Continue fluconazole -Gastroenterology following recommending continued symptomatic and supportive care with no plans for endoscopic evaluation. -Videofluoroscopic barium Swallow eval revealed prasanna oral thrush with no evidence for Sandra esophagitis, palatine tonsillar hypertrophy and a small sliding hiatal hernia. -Continue Protonix. Anterior spondylosis C4 through C5 -CT revealed anterior endplate spondylosis C4 through C5 focally impressing on the posterior wall of the cervical esophagus without obstruction. -Recommend outpatient follow-up with orthospine specialist, Dr. Juárez. CODE STATUS: Full Code DVT prophylaxis: Heparin Discussed with: Patient Anticipated discharge date: Tomorrow Anticipated discharge place: Home Hospital course: A total of 34 minutes was spent on the care of this complex patient more than 50% of the time was spent in counseling and care coordination. Objective - Vital Signs Vital signs: Vital Signs Temp 98.7 F 10/14/21 12:21 Pulse 87 10/14/21 14:04 Resp 16 10/14/21 12:21 BP 131/85 10/14/21 12:21 Pulse Ox 97 10/14/21 12:21 FiO2 Intake & Output 10/13/21 10/14/21 10/14/21 18:59 06:59 18:59 Intake Total 800 Balance 800 Weight 88.451 kg 88.451 kg 88.451 kg Intake: Intake, IV Titration 800 Amount Ampicillin-Sulbactam 3 gm 100 In Sodium Chloride 0.9% 100 ml @ 200 mls/hr IVPB ONCE ONE Rx#:[id number] Sodium Chloride 0.9% 1, 700 000 ml @ 75 mls/hr IV . [id number] [facility] Rx#:[id number] Other: Voiding Method Toilet Toilet # Voids 2 - Labs CBC & Chem 7: 10/13/21 16:36 10/13/21 16:36 Labs: Abnormal Lab Results - Last 24 Hours (Table) 10/13/21 10/13/21 Range/Units 16:36 16:36 BUN 21 H (9-20) mg/dL ALT 59 H (4-49) U/L Total Protein 9.1 H (6.3-8.2) g/dL Albumin 5.3 H (3.5-5.0) g/dL Ur Specific [place] 1.037 H (1.001-1.035) Urine Protein 1+ H (Negative) Urine Ketones 4+ H (Negative) Urine Bilirubin 1+ H (Negative) Urine Mucus Many H (None) /hpf
[2021-10-15 04:46] VITALS: BP 144/74; PULSE 88; RESP 16; TEMP 97.6
[2021-10-15] MEDS: PROCHLORPERAZINE 5 MG TAB PO SCH (07:26)
[2021-10-15] MEDS: PANTOPRAZOLE 40 MG/10 ML VIAL IV SCH (07:26)
[2021-10-15] MEDS: FLUCONAZOLE IN NACL,ISO-OSM 200 MG in SALINE 1 100ML.BAG IVPB SCH (07:26)
[2021-10-15] MEDS: SODIUM CHLORIDE 0.9% 1,000 ML IV SCH (07:27)
[2021-10-15] MEDS: HEPARIN SODIUM,PORCINE/PF 5,000 UNIT/0.5 ML SYRINGE SQ SCH (07:27)
--- NOTE | 2021-10-15 12:39 | P.DS ---
Providers Date of admission: 10/13/21 19:16 Expected date of discharge: 10/15/21 Attending physician: Mirna Ames MD Consults: 10/13/21 19:16 Consult Physician Urgent Consulting Provider: Sana Riddle Consult Reason/Comments: Intractable dysphagia Do you want consulting provider notified?: Yes 10/13/21 22:32 Consult Physician Urgent Consulting Provider: Prasanna Del Castillo Reason/Comments: dysphagia Do you want consulting provider notified?: Yes Primary care physician: [facility] Course: Discharge Diagnosis: Dysphagia with excessive eructation, patient discharged home on Compazine 5 mg by mouth 3 times daily and to follow up outpatient with gastroenterology and ENT as discussed. Continue omeprazole, fluconazole and Kools Solution Anterior spondylosis C4 through C5, focally impressing on the posterior wall of the cervical esophagus without obstruction. Recommend outpatient follow-up with orthospine specialist, Dr. Juárez. Hospital Course: The patient is a 65-year-old male who presented to the emergency room with complaints of dysphagia and excessive eructation. Patient reports that roughly 10 years ago, he was diagnosed with fungal sinusitis and oral thrush and also had similar symptoms which resolved with antifungals. His current symptoms however started roughly a month ago when he initially developed discomfort and drainage of the sinuses which as per the patient worked its way down to the throat where he then developed gradually worsening belching, now to the point where he is unable to eat and speak in full sentences. He notes that there is an involuntary ingestion of air with most breaths, causing him to constantly belch. He reports having lost 20 pounds of weight in the last one month due to minimal oral intake. Patient was initially seen in the emergency room on 10/[address] neck with contrast revealed mild ethmoid and frontal sinusitis as well as mild cervical lymphadenopathy nonspecific. He was subsequently discharged and followed up with his ENT doctor Dr. Boyd on 10/05 who advised him to go to the emergency room, at which time he went to [facility] and per patient a CT chest was performed and was unremarkable. From there, he was transferred to [facility] and had an inpatient stay in which he underwent an upper endoscopy revealing grade B reflux esophagitis with no other abnormalities. As per the documentation, no specimens were collected, the patient was discharged on 10/09 with Augmentin and fluconazole and advised to follow-up with his ENT. The patient reports not having undergone a swallowing evaluation such as a barium study. Patient reports that he has not taken those medications as he is unable to tolerate any liquids or solids. The patient has discussed with Dr. Boyd about the possibility of a feeding tube if the symptoms persist due to the excessive weight loss. The patient denied odynophagia, nausea, vomiting, diarrhea, abdominal pain. Also denied headaches, visual disturbances, fever, chills, chest pain, shortness of breath. Laboratory evaluation in the emergency room was unremarkable. Patient was admitted under our services with consultation to GI and ENT. Patient underwent a barium swallow which revealed prasanna oral flush with no evidence for Sandra esophagitis, palatine tonsillar hypertrophy and a small sliding hiatal hernia. By mouth challenge completed and patient tolerating oral intake with clear liquids. Gastroenterology evaluated patient recommending continued symptomatic and supportive care with no plans for endoscopic evaluation. Patient evaluated by ENT stating patient's dysphasia and belching possibly neurogenic in origin and started patient on Compazine 5 mg 3 times daily. Patient's diet has been increased to regular diet and he was initiated with treatment of Compazine for excessive eructation. Patient again monitored overnight, he is eating without any noted difficulties. Patient is medically stable at this time and is being discharged home. Patient to follow up outpatient with PCP, gastroenterology, ENT, and orthospine specialist. Physical examination: Vital signs reviewed and stable. General: non toxic, no distress, appears at stated age Derm: warm, dry Head: atraumatic, normocephalic, symmetric Eyes: EOMI, no lid lag, anicteric sclera Mouth: no lip lesion, mucus membranes moist Cardiovascular: S1S2 reg, no murmur, positive posterior tibial pulse bilateral, Lungs: CTA bilateral, no rhonchi, no rales , no accessory muscle use Abdominal: soft, nontender to palpation, no guarding, no appreciable organomegaly Ext: no gross muscle atrophy, no edema, no contractures Neuro: CN II-XI grossly intact, no focal neuro deficits Psych: Alert, oriented, appropriate affect A total of 33 minutes of time were spent preparing this complex discharge summary. Pt was discharged on 10/15/21 at 12:27 PM I reviewed the documentation as provided by the SCOT above, who is the original author of this note. I agree with the documented assessment and plan, with the following changes: None Patient Condition at Discharge: Stable Plan - Discharge Summary Discharge Rx Participant: No New Discharge Prescriptions: New Prochlorperazine [Compazine] 5 mg PO Q8HR 30 Days #90 tab Continue predniSONE [Deltasone] 20 mg PO Q48H Omeprazole [PriLOSEC] 40 mg PO DAILY Montelukast Sodium [Singulair] 10 mg PO DAILY Fluconazole [Diflucan] 200 mg PO DAILY Kools Solution 10 ml PO Q4H PRN PRN Reason: MOUTH ISSUES Discharge Medication List Fluconazole [Diflucan] 200 mg PO DAILY 10/13/21 [History] Kools Solution 10 ml PO Q4H PRN 10/13/21 [History] Montelukast Sodium [Singulair] 10 mg PO DAILY 10/13/21 [History] Omeprazole [PriLOSEC] 40 mg PO DAILY 10/13/21 [History] predniSONE [Deltasone] 20 mg PO Q48H 10/13/21 [History] Prochlorperazine [Compazine] 5 mg PO Q8HR 30 Days #90 tab 10/15/21 [Rx] Follow up Appointment(s)/Referral(s): Prasanna Del Castillo DO [Doctor of Osteopathic Medicine] - 1 Week (call on Sun to schedule follow-up appointment, office is currently closed) Sana Riddle MD [STAFF PHYSICIAN] - 1 Week (call on Sunday to schedule follow- up appointment, office is currently closed) Cleve Juárez DO [Doctor of Osteopathic Medicine] - 1 Week (Anterior spondylosis C4 through C5) Trent Sykes [Primary Care Provider] - 1-2 days (call on Sunday to schedule follow-up appointment, office is currently closed) Patient Instructions/Handouts: Prochlorperazine (By mouth), Sinusitis (ED), Malnutrition (DC), Chronic Dysphagia (DC), Gas and Bloating (GEN) Activity/Diet/Wound Care/Special Instructions: Activity: As tolerated. Take breaks as needed. Diet: Heart healthy and carb consistent diet. Avoid salts, or foods with hidden salts such as canned or boxed foods and frozen dinners. Extra salt makes your heart work harder and traps the fluid in your body for longer. Special Instructions: Take all of your medications as directed and remember to keep all of your doctor's appointments and follow-up as needed. Thank you for allowing us to participate in your care, it was truly a pleasure having you for our patient!!! Discharge Disposition: HOME SELF-CARE
== END 2021-10-15 13:00 | disposition home or self-care (01) | DRG 392 ==
LOC: EC 13:31 → 5NMEDONC 19:16
PROVIDERS: ADMIT Internal Medicine; ATTEND Internal Medicine
DX: R13.19 Other dysphagia (principal); E46 Unspecified protein-calorie malnutrition; B37.0 Candidal stomatitis; Z68.28 Body mass index [BMI] 28.0-28.9, adult; R14.2 Eructation; M47.892 Other spondylosis, cervical region; J32.2 Chronic ethmoidal sinusitis; G47.30 Sleep apnea, unspecified; J32.1 Chronic frontal sinusitis; F41.9 Anxiety disorder, unspecified; J35.1 Hypertrophy of tonsils; R63.4 Abnormal weight loss; K21.00 Gastro-esophageal reflux disease with esophagitis, without bleeding; K44.9 Diaphragmatic hernia without obstruction or gangrene; Z79.899 Other long term (current) drug therapy; Z82.49 Family history of ischemic heart disease and other diseases of the circulatory system; Z87.891 Personal history of nicotine dependence; Z28.21 Immunization not carried out because of patient refusal; Z79.52 Long term (current) use of systemic steroids
CPT/HCPCS: 36415; 74220; 80053; 81001; 85025; 85652; 86140; 96361; 96365; 96366; 96367; 96375; 99285

== ENCOUNTER 2022-02-16 10:44 | Emergency (ER) | payer MEDICARE, OTHER ==
[2022-02-16 11:32] VITALS: RESP 18; TEMP 98.1
[2022-02-16 12:33] LABS: Basophils % (A) 0 %; Eosinophils # (A) 0.1 k/uL (0-0.7); Eosinophils % (A) 1 %; HCT 45.7 % (39.0-53.0); HGB 16.1 gm/dL (13.0-17.5); Lymphocytes # (A) 1.6 k/uL (1.0-4.8); Lymphocytes % (A) 14 %; MCH 31.1 pg (25.0-35.0); MCHC 35.3 g/dL (31.0-37.0); MCV 88.2 fL (80.0-100.0); Mean Platelet Volume 8.1; Monocytes # (A) 0.4 k/uL (0-1.0); Monocytes % (A) 3 %; Neutrophils # (A) 9.5 k/uL (1.3-7.7); Neutrophils % (A) 81 %; Platelet Count 179 k/uL (150-450); RBC 5.18 m/uL (4.30-5.90); RDW 11.9 % (11.5-15.5); WBC 11.7 k/uL (3.8-10.6)
[2022-02-16 12:47] LABS: Partial Thromboplastin Time 24.3 sec (22.0-30.0); Prothrombin Time 10.5 sec (9.0-12.0)
--- NOTE | 2022-02-16 12:59 | XR ---
EXAMINATION TYPE: XR chest 2V DATE OF EXAM: 02/16/2022 COMPARISON: None HISTORY: 66-year-old male pain and hypertension TECHNIQUE: Frontal and lateral views FINDINGS: Heart normal size. Aorta within normal limits. No consolidation or pleural effusion. IMPRESSION: No acute cardiopulmonary process.
[2022-02-16 13:05] LABS: Albumin 5.3 g/dL (3.5-5.0); Potassium 4.1 mmol/L (3.5-5.1); Total Bilirubin 0.9 mg/dL (0.2-1.3); Total Protein 8.8 g/dL (6.3-8.2)
[2022-02-16] MEDS ORDERED: LORazepam 2 MG/ML INJ IV STA (15:14)
--- NOTE | 2022-02-16 15:28 | ED ---
General Adult HPI - General Chief complaint: Recheck/Abnormal Lab/Rx Stated complaint: Hypertension Time Seen by Provider: 02/16/22 14:40 Source: patient, RN notes reviewed Mode of arrival: ambulatory Limitations: no limitations - History of Present Illness Initial comments: 66-year-old male presents emergency Department with chief complaint of hypertens ion. 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 Arriola advise him go to the emergency department or PCP for further evaluation. Patient states she's had presented to urgent care again referred to emergency department. Patient states his blood pressure is 200/90. 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 Patient states he was recently diagnosed with sleep apnea and is scheduled to have CPAP set up. 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 Patient does admit there is a former smoker. Patient does admit that is has s evere anxiety and which she used to be on Seroquel is currently on Paxil, hydroxyzine states does not help but does not take it. Denies benign decongestants. Patient states his blood pressure was elevated prior taken his prednisone that he did take 40 mg already. - Related Data Home Medications Medication Instructions Recorded Confirmed Fluconazole [Diflucan] 200 mg PO DAILY 10/13/21 10/13/21 Kools Solution 10 ml PO Q4H PRN 10/13/21 Montelukast Sodium [Singulair] 10 mg PO DAILY 10/13/21 10/13/21 Omeprazole [PriLOSEC] 40 mg PO DAILY 10/13/21 10/13/21 predniSONE [Deltasone] 20 mg PO Q48H 10/13/21 10/13/21 Previous Rx's Medication Instructions Recorded Prochlorperazine [Compazine] 5 mg PO Q8HR 30 Days #90 tab 10/15/21 QUEtiapine [SEROquel] 25 mg PO HS #14 tab 02/16/22 Allergies Allergy/AdvReac Type Severity Reaction Status Date / Time No Known Allergies Allergy Verified 02/16/22 11:32 Review of Systems ROS Statement: Those systems with pertinent positive or pertinent negative responses have been documented in the HPI. ROS Other: All systems not noted in ROS Statement are negative. Past Medical History Past Medical History: GERD/Reflux Additional Past Medical History / Comment(s): laryngeal polyps, sinusitis, sleep apnea History of Any Multi-Drug Resistant Organisms: None Reported Past Surgical History: No Surgical Hx Reported Past Anesthesia/Blood Transfusion Reactions: No Reported Reaction Past Psychological History: No Psychological Hx Reported Smoking Status: Former smoker Past Alcohol Use History: None Reported Past Drug Use History: None Reported - Past Family History Mother Family Medical History: Hypertension General Exam Limitations: no limitations General appearance: alert, in no apparent distress, anxious Head exam: Present: atraumatic, normocephalic, normal inspection Eye exam: Present: normal appearance, PERRL, EOMI. Absent: scleral icterus, conjunctival injection, periorbital swelling ENT exam: Present: normal exam, normal oropharynx, mucous membranes moist Neck exam: Present: normal inspection, full ROM. Absent: tenderness, meningismus, lymphadenopathy Respiratory exam: Present: normal lung sounds bilaterally. Absent: respiratory distress, wheezes, rales, rhonchi, stridor Cardiovascular Exam: Present: normal rhythm, tachycardia, normal heart sounds. Absent: systolic murmur, diastolic murmur, rubs, gallop, clicks GI/Abdominal exam: Present: soft, normal bowel sounds. Absent: distended, tenderness, guarding, rebound, rigid Neurological exam: Present: alert, oriented X3 Skin exam: Present: warm, dry, intact, normal color. Absent: rash Course Vital Signs 02/16/22 02/16/22 02/16/22 11:30 15:29 16:12 Temperature 98.1 F Pulse Rate 116 H 92 82 Respiratory 18 18 18 Rate Blood Pressure 145/86 155/96 119/87 O2 Sat by Pulse 98 99 98 Oximetry Medical Decision Making - Medical Decision Making 66-year-old male presented from for hypertension. Patient is very anxious patient did have 4 complaining labs EKG and chest x-ray with no acute findings. Patient was given Ativan blood pressure, symptoms have improved. Patient used to be on Seroquel at nighttime for his anxiety which he does not have. Patient does have follow-up with PCP next week. Patient will be discharged in stable condition return parameters discussed. - Lab Data Result diagrams: 02/16/22 12:21 02/16/22 12:21 Lab Results 02/16/22 02/16/22 02/16/22 Range/Units 12:21 12:21 12:21 WBC 11.7 H (3.8-10.6) k/uL RBC 5.18 (4.30-5.90) m/uL Hgb 16.1 (13.0-17.5) gm/dL Hct 45.7 (39.0-53.0) % MCV 88.2 (80.0-100.0) fL MCH 31.1 (25.0-35.0) pg MCHC 35.3 (31.0-37.0) g/dL RDW 11.9 (11.5-15.5) % Plt Count 179 (150-450) k/uL MPV 8.1 Neutrophils % 81 % Lymphocytes % 14 % Monocytes % 3 % Eosinophils % 1 % Basophils % 0 % Neutrophils # 9.5 H (1.3-7.7) k/uL Lymphocytes # 1.6 (1.0-4.8) k/uL Monocytes # 0.4 (0-1.0) k/uL Eosinophils # 0.1 (0-0.7) k/uL Basophils # 0.0 (0-0.2) k/uL PT 10.5 (9.0-12.0) sec INR 1.0 (<1.2) APTT 24.3 (22.0-30.0) sec Sodium 138 (137-145) mmol/L Potassium 4.1 (3.5-5.1) mmol/L Chloride 102 (98-107) mmol/L Carbon Dioxide 21 L (22-30) mmol/L Anion Gap 15 mmol/L BUN 15 (9-20) mg/dL Creatinine 1.10 (0.66-1.25) mg/dL Est GFR (CKD-EPI)AfAm 80 (>60 ml/min/1.73 sqM) Est GFR (CKD-EPI)NonAf 69 (>60 ml/min/1.73 sqM) Glucose 124 H (74-99) mg/dL Calcium 10.0 (8.4-10.2) mg/dL Total Bilirubin 0.9 (0.2-1.3) mg/dL AST 39 (17-59) U/L ALT 49 (4-49) U/L Alkaline Phosphatase 98 (38-126) U/L Troponin I (0.000-0.034) ng/mL Total Protein 8.8 H (6.3-8.2) g/dL Albumin 5.3 H (3.5-5.0) g/dL 02/16/22 Range/Units 12:21 WBC (3.8-10.6) k/uL RBC (4.30-5.90) m/uL Hgb (13.0-17.5) gm/dL Hct (39.0-53.0) % MCV (80.0-100.0) fL MCH (25.0-35.0) pg MCHC (31.0-37.0) g/dL RDW (11.5-15.5) % Plt Count (150-450) k/uL MPV Neutrophils % % Lymphocytes % % Monocytes % % Eosinophils % % Basophils % % Neutrophils # (1.3-7.7) k/uL Lymphocytes # (1.0-4.8) k/uL Monocytes # (0-1.0) k/uL Eosinophils # (0-0.7) k/uL Basophils # (0-0.2) k/uL PT (9.0-12.0) sec INR (<1.2) APTT (22.0-30.0) sec Sodium (137-145) mmol/L Potassium (3.5-5.1) mmol/L Chloride (98-107) mmol/L Carbon Dioxide (22-30) mmol/L Anion Gap mmol/L BUN (9-20) mg/dL Creatinine (0.66-1.25) mg/dL Est GFR (CKD-EPI)AfAm (>60 ml/min/1.73 sqM) Est GFR (CKD-EPI)NonAf (>60 ml/min/1.73 sqM) Glucose (74-99) mg/dL Calcium (8.4-10.2) mg/dL Total Bilirubin (0.2-1.3) mg/dL AST (17-59) U/L ALT (4-49) U/L Alkaline Phosphatase (38-126) U/L Troponin I <0.012 (0.000-0.034) ng/mL Total Protein (6.3-8.2) g/dL Albumin (3.5-5.0) g/dL Disposition Clinical Impression: Blood pressure check, Anxiety, Palpitations Disposition: HOME SELF-CARE Condition: Stable Instructions (If sedation given, give patient instructions): Anxiety (ED), Low- Sodium Diet (ED) Additional Instructions: Please return to the Emergency Department if symptoms worsen or any other concerns. Prescriptions: QUEtiapine [SEROquel] 25 mg PO HS #14 tab Is patient prescribed a controlled substance at d/c from ED?: No Referrals: Vasyl Sargetn MD [Primary Care Provider] - 1-2 days Time of Disposition: 16:28
[2022-02-16 16:14] VITALS: BP 119/87; PULSE 82
== END 2022-02-16 16:45 | disposition home or self-care (01) ==
LOC: EC 10:44
DX: F41.9 Anxiety disorder, unspecified (principal); R03.0 Elevated blood-pressure reading, without diagnosis of hypertension; R00.2 Palpitations; K21.9 Gastro-esophageal reflux disease without esophagitis; Z87.891 Personal history of nicotine dependence; Z79.899 Other long term (current) drug therapy
CPT/HCPCS: 36415; 93005; 80053; 84484; 85025; 85610; 85730; 71046; 99284; 96374; J2060

== ENCOUNTER → 2022-11-27 | Outpatient (CLI) | payer MEDICARE, OTHER ==
--- NOTE | 2022-11-30 20:14 | MR ---
EXAMINATION TYPE: MR femur/thigh RT wo con DATE OF EXAM: 11/27/2022 COMPARISON: No radiographic correlation available HISTORY: 67-year-old male M79.651 PAIN THIGH, R22.41 SWELLING, MASS, LUMP, Pain posterior distal thig h TECHNIQUE: Multiplanar, multisequence images of the right thigh were obtained without IV contrast. Ax ial and coronal images of the contralateral left side are obtained for comparison purposes. FINDINGS: No abnormal bone marrow edema or suspicious bone marrow replacement. No acute or healing fracture is seen. No significant soft tissue abnormality is identified. No abnormal muscular edema is seen. We note fluid deep to the pes anserinus insertion spanning up to 3.2 cm craniocaudal and 2.8 cm AP. N o Caballero's cyst is identified. IMPRESSION: 1. Prominent fluid medially below the knee, correlate for right-sided pes anserinus bursitis. 2. No other specific abnormality identified along the right thigh.
== END | disposition home or self-care (01) ==
LOC: RADMRIMAIN 13:35
PROVIDERS: ATTEND Orthopaedic Surgery
DX: S76.301A Unspecified injury of muscle, fascia and tendon of the posterior muscle group at thigh level, right thigh, initial encounter (principal); X58.XXXA Exposure to other specified factors, initial encounter

== ENCOUNTER → 2023-09-26 | Outpatient (CLI) | payer MEDICARE, OTHER ==
--- NOTE | 2023-09-27 00:19 | US ---
EXAMINATION TYPE: US abdomen limited DATE OF EXAM: 09/26/2023 COMPARISON: NONE CLINICAL INDICATION: Male, 67 years old with history of R74.8 ELEVATED LIVER ENZYMES; TECHNIQUE: Multiple sonographic images of the right upper quadrant are obtained. FINDINGS: EXAM MEASUREMENTS: Liver Length: 17.1 cm Gallbladder Wall: 0.19 cm CBD: 0.33 cm Right Kidney: 11.1 x 4.7 x 5.7 cm KNIFE CHANGER NOTES: Suboptimal study due to large patient body habitus Pancreas: Obscured by bowel gas Liver: Increased attenuation, decreased visualization of vessels suggestive of fatty infiltrate Gallbladder: No stones seen Evidence for sonographic Orosco's sign: No CBD: wnl Right Kidney: Limited visualization IMPRESSION: 1. Somewhat limited examination. 2. Hepatomegaly with moderate fatty infiltration of the liver.
== END | disposition home or self-care (01) ==
LOC: RADUSWWP 07:45
PROVIDERS: ATTEND Internal Medicine
DX: K76.0 Fatty (change of) liver, not elsewhere classified (principal); R74.8 Abnormal levels of other serum enzymes; R16.0 Hepatomegaly, not elsewhere classified
CPT/HCPCS: 76705

== ENCOUNTER → 2023-11-01 | Outpatient (CLI) | payer MEDICARE, OTHER ==
[2023-11-01 18:15] LABS: Basophils # (A) 0.04 X 10*3/uL (0.00-0.10); Basophils % (A) 0.7 %; Eosinophils % (A) 1.6 %; HCT 41.6 % (39.6-50.0); HGB 13.6 g/dL (13.0-17.0); Lymphocytes % (A) 49.4 %; MCH 29.4 pg (27.0-32.0); MCHC 32.7 g/dL (32.0-37.0); Mean Platelet Volume 11.2 FL (9.5-12.2); Monocytes # (A) 0.61 X 10*3/uL (0.20-1.00); NRBC Per 100 WBC 0 X 10*3/uL (0.00-0.01); Neutrophils # (A) 2.31 X 10*3/uL (1.80-7.70); Neutrophils % (A) 38.1 %; Platelet Count 159 X 10*3/uL (140-440); RBC 4.62 X 10*6/uL (4.40-5.60); RDW 12.4 % (11.5-14.5); WBC 6.07 X 10*3/uL (4.50-10.00)
[2023-11-01 19:32] LABS: BUN/Creat Ratio 12.46 Ratio (12.00-20.00); Blood Urea Nitrogen 16.2 mg/dL (9.0-27.0); Chloride 102 mmol/L (96-109); Glucose 100 mg/dL (70-110); Iron 83 UG/DL (65-175); Potassium 4.6 mmol/L (3.5-5.5); Sodium 136 mmol/L (135-145); Total Iron Binding Capacity 318 UG/DL (228-460)
[2023-11-01 19:33] LABS: ALT 67 U/L (10-49); AST 39 U/L (14-35); Albumin 4.3 g/dL (3.8-4.9); Albumin/Globulin Ratio 1.79 Ratio (1.60-3.17); Alkaline Phosphatase 94 U/L (41-126); Calcium 8.7 mg/dL (8.7-10.3); Globulin 2.4 g/dL (1.6-3.3); Total Bilirubin 0.6 mg/dL (0.3-1.2); Total Protein 6.7 g/dL (6.2-8.2)
[2023-11-01 23:01] LABS: Hepatitis B Surface Antigen Nonreactive (Nonreactive); Hepatitis C IgG Antibody Nonreactive (Nonreactive)
[2023-11-01 23:28] LABS: Ceruloplasmin 22.3 mg/dL (20.0-60.0)
== END | disposition home or self-care (01) ==
LOC: LABWHC1 12:46
PROVIDERS: ATTEND Internal Medicine Gastroenterology
DX: R74.01 Elevation of levels of liver transaminase levels (principal)
CPT/HCPCS: 36415; 80053; 82103; 82390; 82728; 83540; 83550; 85025; 86038; 86803; 87340